=== PATIENT | male | born 1940 | race Caucasian/White ===

== ENCOUNTER → 2018-04-17 | Outpatient (CLI) | payer MEDICARE, OTHER ==
--- NOTE | 2018-04-17 13:26 | KCIC ---
MR of the right knee Indication: Right knee pain for about one month. Vallejo's cyst. Swelling. Technique: The standard multiplanar sequences are obtained. FINDINGS: Artifact: No significant image degradation. Medial meniscus: Degenerative tear. Lateral meniscus: Intact. Anterior cruciate ligament: Intact. Medially displaced bilateral femoral sidewall osteophyte. Posterior cruciate ligament: Intact Medial collateral ligament: Intact. Lateral structures: * Iliotibial band: Intact. * Lateral collateral ligament: Intact. * Biceps femoris tendon: Intact * Popliteus tendon attachment: Intact Extensive mechanism: * Patellar tendon: Intact * Quadriceps tendon: Intact * Retinacular structures: Intact Fluid: Moderate complex joint effusion. Small Vallejo's cyst. Intra-articular bodies: Possible small loose body adjacent to the posterior medial tibial plateau. Joint compartments * patellofemoral joint: Mild chondromalacia of the patella. * medial compartment: Severe cartilage loss with subchondral bone exposure and flattening. Mild subchondral cysts. * lateral compartment: Mildly degenerative. Bones: No significant lesion or acute fracture. Soft tissue: Unremarkable Impression: 1. Medial meniscal tear. 2. Primary osteoarthritis. 3. Possible small loose body. 4. Moderate complex joint effusion, small Vallejo's cyst. Electronically signed by: Tl Mcwilliams MD (04/17/2018 1:23 PM) [facility]
== END | disposition home or self-care (01) ==
LOC: KCIC MRI 11:03
PROVIDERS: ATTEND General Practice
DX: S83.241A Other tear of medial meniscus, current injury, right knee, initial encounter (principal); M17.11 Unilateral primary osteoarthritis, right knee; M71.21 Synovial cyst of popliteal space [Baker], right knee; M22.41 Chondromalacia patellae, right knee; X58.XXXA Exposure to other specified factors, initial encounter; Y93.89 Activity, other specified; Y92.89 Other specified places as the place of occurrence of the external cause; Y99.8 Other external cause status
CPT/HCPCS: 73721

== ENCOUNTER → 2020-09-25 | Outpatient (CLI) | payer MEDICARE, OTHER ==
--- NOTE | 2020-09-25 15:42 | KCIC ---
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 TECHNIQUE: Multiplanar multi-weighted MRI of the brain and brainstem was performed without intravenou s contrast using the [facility] brain protocol. COMPARISON: None available. FINDINGS: The scalp and calvarium are normal. The superior sagittal sinus demonstrates normal venous flow. The corpus callosum is normal in shape and signal intensity. Small retrocerebellar cyst is present. The pituitary and sella are normal. The brainstem and craniocervical junction are unremarkable. There a re T2/FLAIR signal hyperintense foci in the periventricular and subcortical white matter most suggest jose cruz of mild chronic small vessel ischemic changes. Mild ventriculomegaly, out of proportion to sulcal volume loss. No hydrocephalus. Cisternal segments of the 7th and 8th cranial nerves appear normal. No cerebellopontine angle mass is identified. Cochlea and semicircular canals are normal in appearance. Trigeminal nerves and Meckel's cave appears symmetric and normal in appearance. Diffusion weighted images reveal no hyperintensities to suggest acute cerebral infarction. The suscep tibility weighted sequences reveal no evidence of acute or chronic hemorrhage. The paranasal sinuses are normal. The visualized portions of the mastoids are unremarkable. The orbi ts appear normal. Normal flow voids are demonstrated in the carotid arteries and basilar artery. IMPRESSION: No structural abnormality to account for patient's hearing loss. No acute or subacute ischemia is identified. There are T2/FLAIR signal hyperintense foci in the periv entricular and subcortical white matter most suggestive of mild chronic small vessel ischemic changes . Mild to moderate ventriculomegaly, out of proportion to sulcal volume loss. Correlate with any signs and symptoms of normal pressure hydrocephalus. Electronically signed by: Genoveva Theodore MD (09/25/2020 3:39 PM) [id number]
== END ==
LOC: KCIC MRI 13:25
PROVIDERS: ATTEND Otolaryngology
DX: G93.0 Cerebral cysts (principal); G93.89 Other specified disorders of brain; H91.92 Unspecified hearing loss, left ear
CPT/HCPCS: 70551